=== PATIENT | male | born 1990 | race Two or more races ===

== ENCOUNTER 2021-03-14 15:23 | Emergency (ER) | payer OTHER ==
[~2021-03-14] VITALS: Ht 198.1 cm; Wt 92.5 kg
[~2021-03-14 15:23] MED LIST: AVAPRO150 MG; ENALAPRIL 5 MG
[2021-03-14] MEDS ORDERED: NORVASC5 MG (15:33)
== END 2021-03-14 19:04 | disposition home or self-care (01) ==
LOC: ER 15:23
DX: R42 Dizziness and giddiness (principal); R07.89 Other chest pain

== ENCOUNTER 2021-08-14 16:31 | Emergency (ER) | payer OTHER ==
[~2021-08-14] VITALS: Ht 198.1 cm; Wt 93.0 kg
[~2021-08-14 16:31] MED LIST changes: +NORVASC5 MG
[2021-08-14] MEDS ORDERED: DICLOFENAC SODI75 MG PO (19:45)
== END 2021-08-14 20:05 | disposition home or self-care (01) ==
LOC: ER 16:31
DX: M79.605 Pain in left leg (principal); I10 Essential (primary) hypertension

== ENCOUNTER → 2024-09-07 07:15 | Outpatient (CLI) | payer OTHER ==
[~2024-09-07 07:15] MED LIST changes: +DICLOFENAC SODI75 MG PO
== END | disposition home or self-care (01) ==
LOC: NUCLEAR 07:15
PROVIDERS: ATTEND Internal Medicine Hematology & Oncology
DX: M19.90 Unspecified osteoarthritis, unspecified site (principal)